=== PATIENT | male | born 1970 | race African-American/Black ===

== ENCOUNTER 2017-01-07 12:02 | Emergency (ER) | payer OTHER ==
[~2017-01-07] VITALS: Ht 182.9 cm; Wt 79.0 kg
[2017-01-07 12:53] LABS: HEMATOCRIT 40.5 % (38.0-50.0); MCH 28.3 PG (29.0-34.0); MCHC 32.6 G/DL (30.0-36.0); MCV 86.7 FL (86-99); MEAN PLAT.VOLUME 9.2 uM^3 (9.0-12.4); PLATELET COUNT 251 K/uL (156-360); RBC DIS.WIDTH-CV 12.9 % (11.8-14.6); RBC DIS.WIDTH-SD 40.8 % (39-53); RED BLOOD COUNT 4.67 M/uL (4.00-5.50); WHITE BLOOD COUNT 6.7 K/uL (4.1-10.2)
[2017-01-07 13:05] LABS: CHLORIDE 103 mEq/L (99-109); POTASSIUM 3.7 mEq/L (3.7-5.4); SODIUM 144 mEq/L (136-147)
[2017-01-07 13:08] LABS: GLUCOSE 110 mg/dL (70-99)
[2017-01-07 13:09] LABS: ANION GAP 13 MEQ/L (2-14)
[2017-01-07 13:10] LABS: TOTAL BILIRUBIN 1.6 mg/dL (0.0-1.0)
[2017-01-07 13:11] LABS: ALKALINE PHOSPHATASE 68 IU/L (3-129)
[2017-01-07 13:12] LABS: GFR ESTIMATE (CALCULATED) > 59 mL/min/; UREA NITROGEN (BUN) 16 mg/dL (9-23)
[2017-01-07 13:12] LABS: ADD MIUA? YES; BILIRUBIN NEGATIVE; BLOOD NEGATIVE; COLOR AMBER ((YELLOW)); GLUCOSE (STRIP) NEGATIVE; KETONES NEGATIVE; LEUKOCYTES NEGATIVE; NITRITE NEGATIVE; PROTEIN (STRIP) 30; SPECIFIC GRAVITY 1.034 (1.000-1.030)
[2017-01-07 13:15] LABS: BACTERIA RARE /HPF; EPITHELIAL CELLS NONE SEEN /HPF; MUCUS 3+ /LPF; UCUL ADDED? NO; WHITE BLOOD CELLS 0-5 /HPF (0-5)
[2017-01-07 13:41] LABS: DIRECT BILIRUBIN 0.5 mg/dL (0.0-0.3)
[2017-01-07 13:42] LABS: LIPASE 15 U/L (1.0-51.0)
[2017-01-07 14:06] VITALS: BP 156/89
== END 2017-01-07 14:07 | disposition home or self-care (01) ==
LOC: EME 12:02
DX: R11.2 Nausea with vomiting, unspecified (principal)
CPT/HCPCS: 80053; 81003; 82248; 83690; 85027; 99281; 99283

== ENCOUNTER 2017-03-04 13:17 | Emergency (ER) | payer OTHER ==
[~2017-03-04] VITALS: Ht 185.4 cm; Wt 76.5 kg
[2017-03-04 15:27] LABS: HEMATOCRIT 41.7 % (38.0-50.0); MCH 28.5 PG (29.0-34.0); MCHC 32.4 G/DL (30.0-36.0); MEAN PLAT.VOLUME 8.6 uM^3 (9.0-12.4); PLATELET COUNT 251 K/uL (156-360); RBC DIS.WIDTH-CV 13.2 % (11.8-14.6); RBC DIS.WIDTH-SD 43.1 % (39-53); RED BLOOD COUNT 4.74 M/uL (4.00-5.50); WHITE BLOOD COUNT 5.2 K/uL (4.1-10.2)
[2017-03-04 15:35] LABS: CHLORIDE 105 mEq/L (99-109); POTASSIUM 3.3 mEq/L (3.7-5.4); SODIUM 143 mEq/L (136-147)
[2017-03-04 15:37] LABS: GLUCOSE 89 mg/dL (70-99)
[2017-03-04 15:39] LABS: ANION GAP 7 MEQ/L (2-14); TOTAL BILIRUBIN 1.4 mg/dL (0.0-1.0)
[2017-03-04 15:41] LABS: ALKALINE PHOSPHATASE 71 IU/L (3-129); GFR ESTIMATE (CALCULATED) > 59 mL/min/
[2017-03-04 15:42] LABS: UREA NITROGEN (BUN) 15 mg/dL (9-23)
[2017-03-04 15:44] LABS: LIPASE 32 U/L (1.0-51.0)
[2017-03-04] MEDS ORDERED: ZOFRAN4 MG PO (16:04)
[2017-03-04] MEDS ORDERED: ZANTAC150 MG PO (16:04)
[2017-03-04 16:12] LABS: ADD MIUA? NO; BILIRUBIN NEGATIVE; BLOOD NEGATIVE; COLOR YELLOW ((YELLOW)); GLUCOSE (STRIP) NEGATIVE; KETONES NEGATIVE; LEUKOCYTES NEGATIVE; NITRITE NEGATIVE; PROTEIN (STRIP) 30; SPECIFIC GRAVITY 1.028 (1.000-1.030); UCUL ADDED? NO; UROBILINOGEN 0.2 MG/DL (0.2-1.0)
[2017-03-04 16:25] VITALS: BP 125/82
== END 2017-03-04 16:26 | disposition home or self-care (01) ==
LOC: EME 13:17 → RME 13:17
PROVIDERS: Physician Assistant
DX: R11.2 Nausea with vomiting, unspecified (principal); E87.6 Hypokalemia; R05 Cough; Z82.49 Family history of ischemic heart disease and other diseases of the circulatory system
CPT/HCPCS: 80053; 81003; 83690; 85027; 99281; 99284

== ENCOUNTER 2017-05-24 20:36 | Emergency (ER) | payer OTHER ==
[~2017-05-24] VITALS: Ht 182.9 cm; Wt 76.7 kg
[~2017-05-24 20:36] MED LIST: ZANTAC150 MG PO; ZOFRAN4 MG PO
[2017-05-24 21:38] LABS: HEMATOCRIT 43.6 % (38.0-50.0); HEMOGLOBIN 14.3 G/DL (12.5-16.6); MCH 29.3 PG (29.0-34.0); MCHC 32.8 G/DL (30.0-36.0); MCV 89.3 FL (86-99); PLATELET COUNT 283 K/uL (156-360); RBC DIS.WIDTH-CV 12.2 % (11.8-14.6); RBC DIS.WIDTH-SD 40.4 % (39-53); RED BLOOD COUNT 4.88 M/uL (4.00-5.50); WHITE BLOOD COUNT 5.6 K/uL (4.1-10.2)
[2017-05-24 21:48] LABS: ALBUMIN 4.5 g/dL (3.2-4.8); CHLORIDE 108 mEq/L (99-109); POTASSIUM 3.6 mEq/L (3.7-5.4); SODIUM 146 mEq/L (136-147)
[2017-05-24 21:50] LABS: GLUCOSE 123 mg/dL (70-99); TOTAL PROTEIN 7.2 g/dL (6.4-8.3)
[2017-05-24 21:54] LABS: ALKALINE PHOSPHATASE 82 IU/L (3-129); CREATININE 1.2 mg/dL (0.6-1.3); GFR ESTIMATE (CALCULATED) > 59 mL/min/ (58.99-99999)
[2017-05-24 21:55] LABS: UREA NITROGEN (BUN) 20 mg/dL (9-23)
[2017-05-24 21:56] LABS: AST (GOT) 53 IU/L (2-34)
[2017-05-24 21:57] LABS: ALT (GPT) 62 IU/L (3-49)
[2017-05-24 23:49] LABS: APPEARANCE SL.HAZY ((CLEAR)); BILIRUBIN NEGATIVE; BLOOD NEGATIVE; COLOR YELLOW ((YELLOW)); GLUCOSE (STRIP) NEGATIVE; KETONES 5; LEUKOCYTES NEGATIVE; NITRITE NEGATIVE; PROTEIN (STRIP) 30; SPECIFIC GRAVITY 1.033 (1.000-1.030); UROBILINOGEN 0.2 MG/DL (0.2-1.0)
[2017-05-24 23:52] LABS: BACTERIA NONE SEEN /HPF; EPITHELIAL CELLS NONE SEEN /HPF; MUCUS 1+ /LPF; RED BLOOD CELLS 30-40 /HPF (0-5); UCUL ADDED? NO; WHITE BLOOD CELLS 0-5 /HPF (0-5)
[2017-05-25] MEDS ORDERED: ZOFRAN ODT8 MG PO (00:19)
[2017-05-25 00:31] VITALS: BP 140/92
== END 2017-05-25 00:32 | disposition home or self-care (01) ==
LOC: RME 20:36 → EME 20:36 → RME 05-25 00:32
DX: R42 Dizziness and giddiness (principal)
CPT/HCPCS: 80053; 81003; 85027; 99281; 99284